=== PATIENT | male | born 1970 | race African-American/Black ===

== ENCOUNTER 2025-04-24 07:05 | Emergency (ER) | payer MEDICAID ==
[~2025-04-24] VITALS: Ht 190.5 cm; Wt 100.0 kg
[2025-04-24 07:08] VITALS: O2SAT 97
[2025-04-24 08:00] LABS: BASOPHILS % 0.4 % (0.0-2.0); EOSINOPHILS % 0.7 % (0.0-5.0); HEMATOCRIT. 36.8 % (42.0-52.0); HEMOGLOBIN. 12.2 g/dL (14.0-18.0); LYMPHOCYTES % 40.6 % (20.0-50.0); MEAN PLATELET VOLUME 7.1 fl (7.4-10.4); MONOCYTES % 12.7 % (2.0-8.0); NEUTROPHILS % 45.6 % (40.0-76.0); PLATELET 231 x1000/uL (130-400); RED BLOOD CELL COUNT 4.09 mill/uL (4.7-6.1); RED CELL DISTRIBUTION WIDTH 13.8 % (11.6-14.6)
[2025-04-24 08:24] LABS: CREATININE 1.5 mg/dL (0.6-1.3); UREA NITROGEN BLOOD 15 mg/dL (9-23)
[2025-04-24 08:25] LABS: ETHANOL BLOOD < 10 mg/dL (<10)
[2025-04-24 08:36] LABS: *AMPHETAMINES SCREEN URINE PRESUMPTIVE POSITIVE (NEGATIVE); *BARBITURATES SCREEN URINE NEGATIVE (NEGATIVE); *BENZODIAZEPINES SCREEN URINE NEGATIVE (NEGATIVE); *COCAINE SCREEN URINE NEGATIVE (NEGATIVE); CANNABINOID URINE SCREEN NEGATIVE (NEGATIVE); METHADONE URINE SCREEN NEGATIVE (NEGATIVE); OPIATES URINE SCREEN NEGATIVE (NEGATIVE); PHENCYCLIDINE URINE SCREEN NEGATIVE (NEGATIVE)
[2025-04-24 08:37] LABS: ECSTASY MDMA SCREEN URINE CONF.TEST INDICATED (NEGATIVE)
[2025-04-24 12:04] VITALS: BP 152/85; PULSE 82; RESP 16; TEMP 37.2; O2SAT 97
== END 2025-04-24 12:45 | disposition home or self-care (01) ==
LOC: ER 07:05
DX: F15.10 Other stimulant abuse, uncomplicated (principal); F20.9 Schizophrenia, unspecified; Z79.899 Other long term (current) drug therapy
CPT/HCPCS: 36415; 80048; 80305; 80320; 85025; 93005; 99284; G0480